=== PATIENT | male | born 1965 ===

== ENCOUNTER 2017-06-01 00:29 | Day surgery (SDC) | payer OTHER ==
[2017-06-01] VITALS (7 sets, daily range): BP systolic 108–122; BP diastolic 70–92
[~2017-06-01] VITALS: Ht 185.4 cm; Wt 111.6 kg
[2017-06-01] MEDS ORDERED: PROPOFOL EMUL(*) 10MG/ML 20 ML 60 ML ONE (07:07)
[2017-06-01] MEDS ORDERED: LIDOCAINE MPF 1% 5 ML VIAL ONE (07:07)
[2017-06-01] MEDS ORDERED: NORMOSOL R SOLN(*) 1000 ML BAG 1,000 ML IV PRN (11:30)
[2017-06-01] MEDS ORDERED: MIDAZOLAM 2 MG/2 ML VIAL IVP PRN (11:30)
[2017-06-01] MEDS ORDERED: LIDOCAINE/SOD BICARB 8.4% SYR ID ONE (11:30)
== END 2017-06-01 13:50 | disposition home or self-care (01) ==
LOC: OR 00:29
PROVIDERS: ATTEND Family Medicine
DX: Z12.11 Encounter for screening for malignant neoplasm of colon (principal)
CPT/HCPCS: 00812; 45378; J2001; J2704